=== PATIENT | female | born 1930 | race Caucasian/White ===

== ENCOUNTER → 2016-08-04 | Outpatient (CLI) | payer MEDICARE, BC ==
[~2016-08-04] MED LIST: ALBU0.832; AMOX500C2 PO; FLUT12AE16; Guaifenesin/D-Methorphan Hb PO; LEVO50TA72 PO; NAPR-561 PO; PRED20TA PO; ZOLP-107 PO; [UNRECOGNIZED DRUG - CODE] PO; [UNRECOGNIZED DRUG - CODE] PO
== END ==
LOC: NEU 10:25
PROVIDERS: ATTEND Psychiatry & Neurology Neurology
DX: M54.17 Radiculopathy, lumbosacral region (principal); G62.89 Other specified polyneuropathies; G57.31 Lesion of lateral popliteal nerve, right lower limb; M79.604 Pain in right leg; M79.605 Pain in left leg
CPT/HCPCS: 95886; 95911

== ENCOUNTER → 2016-08-19 | Outpatient (CLI) | payer MEDICARE, BC ==
--- NOTE | 2016-08-19 15:48 | DI ---
Indication: ITS.REASON: M47.817 Spondylosis without myelopathy or radiculopathy, lumbosac PROCEDURE: MRI LUMBAR SPINE W/O CONTRAST: Encounter: Initial Comparison: Lumbar spine radiograph dated March 07, 2015 Technique: Multiplanar multisequence MR imaging of the lumbar spine was performed without contrast. Findings: Alignment lumbar spine is straightened with loss of the normal lordosis. There is minimal scoliotic curvature. No acute fracture or subluxation identified. Conus medullaris terminates normally at L1-L2. Paraspinal soft tissues show right renal cysts. Segmental analysis: L1-L2: Mild disk bulging without central canal or neural foraminal stenosis. L2-L3: Mild disk height loss and slight bulging without central canal stenosis. Degenerative facet disease contributing to mild right neural foraminal narrowing. No left foraminal stenosis. L3-L4: Moderate disk height loss with a disk osteophyte complex causing mild central canal narrowing and lateral recess narrowing. Degenerative facet disease causing moderate to severe bilateral neural foraminal stenosis. L4-L5: Mild disk bulging with degenerative facet change. No significant central canal stenosis. Severe right and moderate left neural foraminal stenosis. L5-S1: Degenerative facet change without focal central canal stenosis. Mild left neural foraminal stenosis. Impression: Degenerative changes as above. .
== END ==
LOC: IMA 12:47
PROVIDERS: ATTEND Psychiatry & Neurology Neurology
DX: M47.817 Spondylosis without myelopathy or radiculopathy, lumbosacral region (principal); M47.816 Spondylosis without myelopathy or radiculopathy, lumbar region; M51.26 Other intervertebral disc displacement, lumbar region